=== PATIENT | female | born 1930 | race Caucasian/White ===

== ENCOUNTER → 2016-11-05 | Outpatient (CLI) | payer OTHER | END | disposition home or self-care (01) | LOC: PCVCIMAG 11:30 | PROVIDERS: ATTEND Nuclear Medicine Nuclear Cardiology | DX: I73.9 Peripheral vascular disease, unspecified (principal); I25.10 Atherosclerotic heart disease of native coronary artery without angina pectoris; I77.9 Disorder of arteries and arterioles, unspecified; I35.0 Nonrheumatic aortic (valve) stenosis; I10 Essential (primary) hypertension; E78.00 Pure hypercholesterolemia, unspecified; I65.23 Occlusion and stenosis of bilateral carotid arteries | CPT/HCPCS: 93880; 93926; G0463 ==

== ENCOUNTER → 2017-01-17 | Outpatient (CLI) | payer OTHER | END | disposition home or self-care (01) | LOC: PCVCCLINIC 11:30 | PROVIDERS: ATTEND Internal Medicine | DX: I25.10 Atherosclerotic heart disease of native coronary artery without angina pectoris (principal); I35.0 Nonrheumatic aortic (valve) stenosis; I65.29 Occlusion and stenosis of unspecified carotid artery; I10 Essential (primary) hypertension; I73.9 Peripheral vascular disease, unspecified; E78.00 Pure hypercholesterolemia, unspecified | CPT/HCPCS: 80061; 93005; G0463 ==

== ENCOUNTER → 2017-05-13 | Outpatient (CLI) | payer OTHER ==
--- NOTE | 2017-05-14 08:10 | PCVCIMAG ---
EXAM: BILATERAL LOWER EXTREMITY ARTERIAL DUPLEX INDICATION: Peripheral Arterial Disease. Leg pain. FINDINGS: Right Leg: Satisfactory arterial waveform in the common femoral and profunda femoral artery. Unchanged complete occlusion throughout the superficial femoral artery within prior stent. The popliteal artery is patent. The anterior tibial, peroneal, and posterior tibial arteries are patent. Left Leg: Satisfactory arterial waveform in the common and profunda femoral and superficial femoral and popliteal arteries. Previous stents in the distal superficial femoral artery maintaining adequate patency. Superior to the stent is a 50-60% stenosis and distal to the stent in the [place] artery is a 50-60% stenosis. The anterior tibial, peroneal, and posterior tibial arteries are patent. 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 Unchanged 50-60% stenosis mid and distal [place] left superficial femoral artery as detailed above. LOC:[id number]
== END | disposition home or self-care (01) ==
LOC: PCVCIMAG 13:02
PROVIDERS: ATTEND Nuclear Medicine Nuclear Cardiology
DX: I25.10 Atherosclerotic heart disease of native coronary artery without angina pectoris (principal); I77.89 Other specified disorders of arteries and arterioles; I35.0 Nonrheumatic aortic (valve) stenosis; I10 Essential (primary) hypertension; E78.00 Pure hypercholesterolemia, unspecified; I74.8 Embolism and thrombosis of other arteries; I70.202 Unspecified atherosclerosis of native arteries of extremities, left leg; I65.23 Occlusion and stenosis of bilateral carotid arteries; Z95.828 Presence of other vascular implants and grafts; Z79.82 Long term (current) use of aspirin; Z79.899 Other long term (current) drug therapy
CPT/HCPCS: 93925; G0463

== ENCOUNTER → 2017-07-18 | Outpatient (CLI) | payer OTHER ==
--- NOTE | 2017-07-18 15:17 | PCVCIMAG ---
APPROVED REPORT Indications Stenosis Risk Factors Hypertension: Hyperlipidemia Doppler Spectral Velocity Analysis PSV / EDVPSV / EDV ECA (R) 62 / 6 cm/sECA (L) 89 / 10 cm/s dICA (R) 51 / 12 cm/sdICA (L) 65 / 18 cm/s Karsten (R) 60 / 17 cm/smICA (L) 47 / 10 cm/s pICA (R) 62 / 16 cm/spICA (L) 76 / 10 cm/s Bulb (R) 52 / 6 cm/sBulb (L) 49 / 10 cm/s dCCA (R) 66 / 10 cm/sdCCA (L) 69 / 13 cm/s mCCA (R) 82 / 12 cm/smCCA (L) 74 / 12 cm/s Vert (R) 40 / 6 cm/sVert (L) 44 / 12 cm/s ICA/CCA 0.76ICA/CCA 1.02 Basic Measurements Blood Pressure: Pulses: Right Left RightLeft Brachial(Sitting) 130/02vzFb400/74mmHgTemporal Real Time B-Mode Imaging Vert. (R)AntegradeVert. (L)Antegrade Findings The right carotid bulb has mild plaque. The right proximal internal carotid artery shows no significant stenosis. The right common carotid artery shows no significant stenosis. The right external carotid artery shows no significant stenosis. The left carotid bulb has moderate calcified plaque. The left proximal internal carotid artery shows <40% stenosis. The left common carotid artery shows no significant stenosis. The left external carotid artery shows no significant stenosis. Conclusion 1. Right internal carotid artery plaquing 2. Left internal carotid artery stenosis (<40%) 3. Antegrade vertebral flow
--- NOTE | 2017-07-18 16:10 | PCVCIMAG ---
APPROVED REPORT Study performed: 07/18/2017 13:49:03 EXAM: Comprehensive 2D, Doppler, and color-flow Echocardiogram Patient Location: Echo lab Status: routine BSA: 1.41 HR: 69 bpmBP: 130/80 mmHg Rhythm: NSR Other Information Study Quality: Good Risk Factors: Cardiac Risk Factors: HTN, Hyperlipidemia Indications Aortic Valve Disease CAD 2D Dimensions LVEF(%): 61.98 (>50%) IVSd: 9.74 (7-11mm)LVOT Diam: 17.45 (18-24mm) LVDd: 44.76 mm PWd: 10.18 (7-11mm)Ascending Ao: 28.64 (22-36mm) LVDs: 29.89 (25-40mm) Left Atrium: 37.34 (27-40mm) Aortic Root: 26.12 mm LV Single Plane 4CH: 68.07 % LV Single Plane 2CH: 65.89 %Berumen's LVEF: 66.98 % Biplane EF: 68.0 % Volumes Left Atrial Volume (Systole) Single Plane 4CH: 19.12 mLSingle Plane 2CH: 24.00 mL Aortic Valve AoV Peak Garfield.: 2.23 m/s AO Peak Gr.: 19.86 mmHgLVOT Max P.59 mmHg AO Mean Gr.: 11.50 mmHgLVOT Mean P.65 mmHg AO V2 Mean: 1.64 m/sLVOT Max V: 1.07 m/s AO V2 VTI: 55.88 cmLVOT Mean V: 0.78 m/s TOY (VTI): 1.19 pm8KBDO V1 VTI: 27.71 cm TOY Vmax: 1.15 cm2 SV (LVOT): 66.23 mL Mitral Valve E/A Ratio: 0.7 MV Decel. Time: 360.25 ms MV E Max Garfield.: 0.67 m/s MV A Garfield.: 1.03 m/s IVRT: 83.04 ms TDI E/Lateral E': 16.75E/Medial E': 16.75 Medial E' Garfield.: 0.04 m/s Lateral E' Garfield.: 0.04 m/s Pulmonary Valve PV Peak Garfield.: 0.78 m/sPV Peak Gr.: 2.42 mmHg Pulmonary Vein P Vein S: 0.62 m/sP Vein A: 0.23 m/s P Vein D: 0.29 m/sP Vein A Dur.: 115.3 msec P Vein S/D Ratio: 2.14 Tricuspid Valve TR Peak Garfield.: 2.41 m/sRAP Estimate: 7.00 mmHg TR Peak Gr.: 23.21 mmHg PA Pressure: 30.00 mmHg Left Ventricle The left ventricle is normal size. There is normal LV segmental wall motion. There is normal left ventricular wall thickness. Left ventricular systolic function is normal. The left ventricular ejection fraction is within the normal range. LVEF is 60-65%. Grade I - abnormal relaxation pattern. Right Ventricle The right ventricle is normal size. The right ventricular systolic function is normal. Atria The left atrium size is normal. The right atrium size is normal. Aortic Valve Moderate aortic valve sclerosis, trileaflet. No aortic regurgitation is present. Calculated aortic valve area is 1.2 cm2 with maximum pressure gradient of 20 mmHg and mean pressure gradient of 12 mmHg. Mitral Valve The mitral valve is normal in structure. There is no mitral valve regurgitation noted. No evidence of mitral valve stenosis. Tricuspid Valve The tricuspid valve is normal in structure. Trace tricuspid regurgitation. Pulmonary artery pressure is 30 mmHg. Pulmonic Valve The pulmonary valve is normal in structure. Trace to mild pulmonic regurgitation. Great Vessels The aortic root is normal in size. IVC is normal in size and collapses with >50% inspiration Pericardium There is no pericardial effusion. <Conclusion> Left ventricular systolic function is normal. There is normal LV segmental wall motion. LVEF is 60-65%. Grade I diastolic dysfunction Moderate aortic valve sclerosis, trileaflet, mild stenosis. Calculated aortic valve area is 1.2 cm2 with maximum pressure gradient of 20 mmHg and mean pressure gradient of 12 mmHg. The mitral valve is normal in structure. No mitral valve regurgitation noted. Pulmonary artery pressure of 30mmHg There is no pericardial effusion.
== END | disposition home or self-care (01) ==
LOC: PCVCIMAG 13:10
PROVIDERS: ATTEND Internal Medicine
DX: I65.23 Occlusion and stenosis of bilateral carotid arteries (principal); I07.1 Rheumatic tricuspid insufficiency; I37.1 Nonrheumatic pulmonary valve insufficiency; I25.10 Atherosclerotic heart disease of native coronary artery without angina pectoris; I35.0 Nonrheumatic aortic (valve) stenosis; I10 Essential (primary) hypertension; E78.5 Hyperlipidemia, unspecified; I73.9 Peripheral vascular disease, unspecified; Z79.82 Long term (current) use of aspirin
CPT/HCPCS: 80061; 93005; 93306; 93880; G0463

== ENCOUNTER → 2018-01-20 | Outpatient (CLI) | payer OTHER | END | disposition home or self-care (01) | LOC: PCVCCLINIC 13:19 | DX: I25.10 Atherosclerotic heart disease of native coronary artery without angina pectoris (principal); I35.0 Nonrheumatic aortic (valve) stenosis; I10 Essential (primary) hypertension; E78.5 Hyperlipidemia, unspecified; I65.23 Occlusion and stenosis of bilateral carotid arteries; I73.9 Peripheral vascular disease, unspecified; R94.31 Abnormal electrocardiogram [ECG] [EKG]; Z79.82 Long term (current) use of aspirin; Z79.899 Other long term (current) drug therapy | CPT/HCPCS: 80061; 93005; G0463 ==

== ENCOUNTER → 2018-05-05 | Outpatient (CLI) | payer OTHER | END | disposition home or self-care (01) | LOC: PCVCIMAG 14:04 | DX: I65.23 Occlusion and stenosis of bilateral carotid arteries (principal); I73.9 Peripheral vascular disease, unspecified; I77.9 Disorder of arteries and arterioles, unspecified; I25.10 Atherosclerotic heart disease of native coronary artery without angina pectoris; I35.0 Nonrheumatic aortic (valve) stenosis; I10 Essential (primary) hypertension; E78.00 Pure hypercholesterolemia, unspecified; Z79.82 Long term (current) use of aspirin; Z79.899 Other long term (current) drug therapy | CPT/HCPCS: 93880; 93926; G0463 ==

== ENCOUNTER → 2018-10-06 | Outpatient (CLI) | payer OTHER | END | disposition home or self-care (01) | LOC: PCVCCLINIC 14:57 | PROVIDERS: ATTEND Internal Medicine | DX: I25.10 Atherosclerotic heart disease of native coronary artery without angina pectoris (principal); I35.0 Nonrheumatic aortic (valve) stenosis; I10 Essential (primary) hypertension; E78.5 Hyperlipidemia, unspecified; I65.23 Occlusion and stenosis of bilateral carotid arteries; I73.9 Peripheral vascular disease, unspecified; E78.00 Pure hypercholesterolemia, unspecified; Z79.82 Long term (current) use of aspirin | CPT/HCPCS: 80061; 93005; G0463 ==

== ENCOUNTER → 2019-10-05 | Outpatient (CLI) | payer OTHER ==
--- NOTE | 2019-10-05 15:27 | PCVCIMAG ---
APPROVED REPORT Study performed: 10/05/2019 12:45:55 EXAM: Comprehensive 2D, Doppler, and color-flow Echocardiogram Patient Location: Echo lab Room #: [id number]: routine BSA: 1.41 HR: 78 bpmBP: 108/54 mmHg Rhythm: NSR Other Information Study Quality: Good Risk Factors: Cardiac Risk Factors: PAD, Indications Aortic Valve Disease CAD S/P coronary stents 2D Dimensions IVSd: 8.26 (7-11mm)LVOT Diam: 18.08 (18-24mm) LVDd: 35.81 mm PWd: 8.58 (7-11mm)Ascending Ao: 30.84 (22-36mm) LVDs: 18.27 (25-40mm) Left Atrium: 31.07 (27-40mm) Aortic Root: 19.03 mm LV Single Plane 4CH: 60.20 % LV Single Plane 2CH: 65.56 % Biplane EF: 62.2 % Volumes Left Atrial Volume (Systole) Single Plane 4CH: 24.02 mLSingle Plane 2CH: 35.11 mL Biplane LA Volume: 29.00 mLLA ESV Index: 21.00 mL/m2 Aortic Valve AoV Peak Garfield.: 2.62 m/s AO Peak Gr.: 28.26 mmHgLVOT Max P.66 mmHg AO Mean Gr.: 17.72 mmHgLVOT Mean P.54 mmHg AO V2 Mean: 2.04 m/sLVOT Max V: 1.21 m/s AO V2 VTI: 57.05 cmLVOT Mean V: 0.90 m/s TOY (VTI): 1.09 [id number] V1 VTI: 24.17 cm TOY Vmax: 1.18 cm2 SV (LVOT): 62.00 mL Mitral Valve E/A Ratio: 0.5 MV Decel. Time: 313.76 ms MV E Max Garfield.: 0.58 m/s MV A Garfield.: 1.11 m/s IVRT: 72.66 ms Pulmonary Valve PV Peak Garfield.: 0.83 m/sPV Peak Gr.: 2.78 mmHg Pulmonary Vein P Vein S: 0.72 m/sP Vein A: 0.38 m/s P Vein D: 0.40 m/sP Vein A Dur.: 103.8 msec P Vein S/D Ratio: 1.80 Tricuspid Valve TR Peak Garfield.: 2.30 m/s TR Peak Gr.: 21.25 mmHg TV Vmax: 0.43 m/sPA Pressure: 28.00 mmHg Left Ventricle The left ventricle is normal size. There is normal LV segmental wall motion. Sigmoid septum is present. Left ventricular systolic function is normal. The left ventricular ejection fraction is within the normal range. LVEF is 60-65%. Mild diastolic dysfunction is present (impaired relaxation pattern). Right Ventricle The right ventricle is normal size. The right ventricular systolic function is normal. Atria The left atrium size is normal. The right atrium size is normal. Aortic Valve Aortic valve is trileaflet. Moderate aortic valve calcification No aortic regurgitation is present. There is moderate valvular aortic stenosis. Calculated aortic valve area is 1.2 cm2 with maximum pressure gradient of 28 mmHg and mean pressure gradient of 18 mmHg. Mitral Valve Mild mitral annular calcification There is no mitral valve regurgitation noted. No evidence of mitral valve stenosis. Tricuspid Valve The tricuspid valve is normal in structure. Mild tricuspid regurgitation with a PA pressure of 28 mmHg. No apparent pulmonary hypertension. Pulmonic Valve The pulmonary valve is normal in structure. Trace pulmonic regurgitation. Great Vessels The aortic root is normal in size. The ascending aorta is normal in size. Aortic arch is normal in caliber. IVC is normal in size and collapses >50% with inspiration. Pericardium There is no pericardial effusion. There is no pleural effusion. <Conclusion> Left ventricular systolic function is normal. There is normal LV segmental wall motion. LVEF is 60-65%. Mild diastolic dysfunction Aortic valve is trileaflet. Moderate aortic valve calcification; moderate stenosis, no insufficiency Calculated aortic valve area is 1.2 cm2 with maximum pressure gradient of 28 mmHg and mean pressure gradient of 18 mmHg. Mild mitral annular calcification. No mitral valve regurgitation Mild tricuspid regurgitation with a pulmonary artery pressure of 28 mmHg. There is no pericardial effusion.
== END | disposition home or self-care (01) ==
LOC: PCVCIMAG 12:45
PROVIDERS: ATTEND Internal Medicine
DX: I08.3 Combined rheumatic disorders of mitral, aortic and tricuspid valves (principal); I25.10 Atherosclerotic heart disease of native coronary artery without angina pectoris; I10 Essential (primary) hypertension; E78.5 Hyperlipidemia, unspecified; I65.23 Occlusion and stenosis of bilateral carotid arteries; I73.9 Peripheral vascular disease, unspecified; E78.00 Pure hypercholesterolemia, unspecified; Z82.49 Family history of ischemic heart disease and other diseases of the circulatory system; Z79.82 Long term (current) use of aspirin; Z79.899 Other long term (current) drug therapy
CPT/HCPCS: 93306